=== PATIENT | male | born 2000 | race Caucasian/White ===

== ENCOUNTER → 2019-09-26 | Outpatient (CLI) | payer BC, OTHER | END | disposition home or self-care (01) | LOC: RAD 11:00 | PROVIDERS: ATTEND Family Medicine | DX: R94.5 Abnormal results of liver function studies (principal) | CPT/HCPCS: 78226; A9537 ==

== ENCOUNTER 2019-10-21 12:40 | Day surgery (SDC) | payer BC ==
[~2019-10-21] VITALS: Ht 195.6 cm; Wt 127.5 kg
[~2019-10-21 12:40] MED LIST: BUPIVACAINE/PF-EPI 0.5% 1:200K ONE
[2019-10-21] MEDS ORDERED: LACTATED RINGERS 1,000 ML IV SCH (13:02)
[2019-10-21] MEDS ORDERED: CHLORHEXIDINE 15 ML UDC MM STA (13:02)
[2019-10-21 13:05] VITALS: BP 139/109
[2019-10-21] MEDS ORDERED: NO MEDS PER PT (13:29)
[2019-10-21] MEDS ORDERED: FENTANYL PF 250 MCG/5ML ONE (14:22)
[2019-10-21] MEDS ORDERED: MIDAZOLAM 1 MG/ML, 2ML ONE (14:22)
[2019-10-21] MEDS ORDERED: KETOROLAC 30 MG/1 ML ONE (14:25)
[2019-10-21] MEDS ORDERED: SUGAMMADEX 200 MG/2 ML IVPush ONE (14:25)
[2019-10-21] MEDS ORDERED: SUCCINYLCHOLINE 20 MG/ML, 10ML ONE (15:10)
[2019-10-21] MEDS ORDERED: PROPOFOL 10 MG/ML, 20ML ONE (15:10)
[2019-10-21] MEDS ORDERED: ROCURONIUM 10MG/ML,5ML ONE (15:10)
[2019-10-21] MEDS ORDERED: NEOSTIGMINE 1 MG/ML, 10ML ONE (15:10)
[2019-10-21] MEDS ORDERED: DEXAMETHASONE 4 MG/ML, 1ML ONE (15:10)
[2019-10-21] MEDS ORDERED: ONDANSETRON 2MG/ML, 2ML ONE (15:10)
[2019-10-21] MEDS ORDERED: GLYCOPYRROLATE 0.2MG/1ML, 5ML ONE (15:10)
[2019-10-21] MEDS ORDERED: CEFAZOLIN 1,000 MG ONE (15:10)
[2019-10-21] MEDS ORDERED: OXYcodone 5 MG/5 ML ORAL.SOL UDC ONE (15:34)
[2019-10-21] MEDS ORDERED: ACETAMINOPHEN 650 MG/20.3 ML UDC ONE (15:34)
[2019-10-21] MEDS: OXYcodone 5 MG/5 ML ORAL.SOL UDC PO PRN ×2 (15:36→16:18)
[2019-10-21] MEDS ORDERED: MEPERIDINE/PF 25MG/0.5ML IVPush PRN (16:00)
[2019-10-21] MEDS ORDERED: FENTANYL PF 100 MCG/2ML IV PRN (16:00)
[2019-10-21] MEDS ORDERED: hydrALAzine 20 MG/ML, 1ML IV PRN (16:00)
[2019-10-21] MEDS ORDERED: HYDROmorphone 1 MG/ML, 1ML INJ IVPush PRN (16:00)
[2019-10-21] MEDS ORDERED: ACETAMINOPHEN 325 MG TABLET PO PRN (16:00)
[2019-10-21] MEDS ORDERED: ONDANSETRON 2MG/ML, 2ML IVPush PRN (16:00)
[2019-10-21] MEDS ORDERED: LABETALOL 5MG/ML, 20ML IV PRN (16:00)
== END 2019-10-21 17:10 | disposition home or self-care (01) ==
LOC: OUT 12:40
PROVIDERS: ATTEND Surgery
DX: K82.8 Other specified diseases of gallbladder (principal); Z20.828 Contact with and (suspected) exposure to other viral communicable diseases; F17.210 Nicotine dependence, cigarettes, uncomplicated; Z88.1 Allergy status to other antibiotic agents; Z88.2 Allergy status to sulfonamides; Z72.89 Other problems related to lifestyle
CPT/HCPCS: 36415; 47562; 87635; 88304; J0690; J1100; J1885; J2250; J2405; J2704; J3010; J7120; J2710; J0330

== ENCOUNTER 2020-03-18 14:52 | Emergency (ER) | payer BC ==
[~2020-03-18] VITALS: Ht 195.6 cm; Wt 134.3 kg
[~2020-03-18 14:52] MED LIST changes: -BUPIVACAINE/PF-EPI 0.5% 1:200K ONE; +NO MEDS PER PT
[2020-03-18 15:47] LABS: BASOPHILS % (AUTO) 1 % (0-1); EOSINOPHILS % (AUTO) 1 % (1-7); LYMPHOCYTES % (AUTO) 25 % (22-44); MEAN CORPUSCULAR HEMOGLOBIN 31.1 pg (27.5-34.5); MEAN CORPUSCULAR HGB CONC 34.7 g/dL (33.2-36.2); MONOCYTES % (AUTO) 8 % (2-9); NEUTROPHILS % (AUTO) 65 % (42-75); PLATELET COUNT 282 x10^3/uL (130-400); RED BLOOD COUNT 4.84 x10^6/uL (4.38-5.82); RED CELL DISTRIBUTION WIDTH 12.8 % (9.4-14.8)
--- NOTE | 2020-03-18 15:54 | NUR ---
Report from wilfred Curtis.
[2020-03-18 15:55] LABS: MD NO
--- NOTE | 2020-03-18 15:55 | NUR ---
LABS DRAWN BY TECH. PT AMBULATORY TO BR IN ATTEMPT TO PROVIDE STOOL SPECIMEN. REPORT TO MYRNA BARRERA, TRANSFER OF CARE AT THIS TIME.
[2020-03-18 15:57] LABS: ANION GAP 7 mmol/L (5-15); CALCIUM 9.3 mg/dL (8.5-10.1); CHLORIDE 107 mmol/L (98-107); CREATININE 1.09 mg/dL (0.7-1.3)
--- NOTE | 2020-03-18 16:02 | NUR ---
SOFT BROWN STOOL SPECIMEN WALKED TO LAB.
--- NOTE | 2020-03-18 16:42 | NUR ---
RN at bedside, provider at bedside.
--- NOTE | 2020-03-18 16:46 | NUR ---
Provided pt warm blanket.
[2020-03-18 17:33] LABS: CRYPTOSPORIDIUM ANTIGEN Negative (Negative)
[2020-03-18 17:53] VITALS: BP 134/76
--- NOTE | 2020-03-18 17:59 | NUR ---
Pt agrees with and understands discharge plan and instructions.
== END 2020-03-18 18:14 | disposition home or self-care (01) ==
LOC: ED 17:26
DX: K52.9 Noninfective gastroenteritis and colitis, unspecified (principal)
CPT/HCPCS: 36415; 80048; 85025; 87046; 87252; 87328; 87329; 87427; 89055; 99283